=== PATIENT | male | born 1995 | race Two or more races ===

== ENCOUNTER 2024-10-23 09:38 | Emergency (ER) | payer MEDICAID, SELFPAY ==
[2024-10-23 09:47] VITALS: BP 124/83; PULSE 113; RESP 16; TEMP 36.4; O2SAT 98; BMI 25.8
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
[2024-10-23 10:27] VITALS: BP 124/83; PULSE 113; RESP 16; TEMP 36.4; O2SAT 98
--- OUTSIDE RECORDS SUMMARY | 2024-10-23 11:12 | XMS_ITS | Clinical Summary ---
Author Organization [facility] Address [address] [place] [phone] Phone Care Team Providers Care Cook'S Assistant Name Role Phone Unavailable Primary Care Provider Unavailabl e Immunizations Immunization Administration Dates Next Due DTP 02/08/1997,12/19/1996,12/21/1995 ,04/21/1995 DTaP 5 01/09/1999 Hep B, ped/adol 10/03/1998,05/14/1997,02/08/1997 Hib (PRP-T) 12/21/1995,04/21/1995 MMR 01/21/1999,04/21/1995 OPV 01/09/1999,02/08/1997,12/21/1995 ,04/21/1995 Varicella 01/21/1999 Social History Tobacco Use Types Packs/Day Years Used Date Smoking Tobacco: Never Assessed Sex and Gender Information Value Date Recorded Sex Assigned at Not on file Legal Sex Male 4:29 PM EDT Gender Identity Not on file Sexual Orientation Not on file Plan of Treatment Health Maintenance Due Date Last Done Comments Varicella Vaccines (2 of 2 - 2-dose childhood series) 04/15/1999 01/21/1999 DTaP,Tdap,and Td Vaccines (5 - Tdap) 2004 01/09/1999, 02/08/1997, 12/19/1996, Additional history exists COVID-19 Vaccine (2023- season) 2023 Influenza Vaccines (#1) 2024 HIB Vaccines Completed 12/21/1995, 04/21/1995 Hepatitis B Vaccines Completed 10/03/1998, 05/14/1997, 02/08/1997 IPV Vaccines Completed 01/09/1999, 01/18, 12/21/1995, Additional history exists MMR Vaccines Completed 01/21/1999, 04/21/1995 HPV Vaccines Aged Out No longer eligi ble based on patient's age to complete this topic Hepatitis A Vaccines Aged Out No long er eligible based on patient's age to complete this topic Men B Vaccine Aged Out No longer elig ible based on patient's age to complete this topic Meningococcal Vaccine Aged Out No arnold tigre eligible based on patient's age to complete this topic Pneumococcal Vaccine Aged Out No long er eligible based on patient's age to complete this topic
== END 2024-10-23 10:29 | disposition home or self-care (01) ==
LOC: HO.ED 10:24
PROVIDERS: Emergency Provider Emergency Medicine
DX: Z48.02 Encounter for removal of sutures (principal); Z48.01 Encounter for change or removal of surgical wound dressing
CPT/HCPCS: 99282; 99284

== ENCOUNTER 2024-11-22 12:04 | Outpatient (REF) | payer MEDICAID, SELFPAY ==
--- OUTSIDE RECORDS SUMMARY | 2024-11-22 12:48 | XMS_ITS | Clinical Summary ---
Author Organization [facility] Address [address] [place] [phone] Phone Care Team Providers Care It Desktop Support Technician Name Role Phone Unavailable Primary Care Provider [...]
[2024-11-22 13:43] LABS: Hematocrit 37.2 % (42.0-52.0); Hemoglobin 11.8 g/dl (14.0-18.0); Mean Corpuscular HGB Conc 31.7 g/dl (31.0-36.0); Mean Corpuscular Hemoglobin 24.5 pg (27.0-33.0); Mean Corpuscular Volume 77.2 fL (80.0-98.0); NRBC Abs Auto 0.000 X10*3/uL (0.0-0.012); NRBC Pct Auto 0.0 /100WBC (0.0-0.2); Platelet Count 272 X10*3/uL (160-400); Red Blood Count 4.82 X10*6/uL (4.60-5.80); White Blood Count 7.5 X10*3/uL (4.8-10.8)
[2024-11-22 13:58] LABS: Hemoglobin A1C 97.3138 umol/L; Total Hemoglobin (HGBA1C) 3156.8785 umol/L
[2024-11-22 14:19] LABS: Syphilis Screen Nonreactive (Nonreactive)
[2024-11-22 14:22] LABS: Ferritin 429 ng/mL (20-250)
[2024-11-22 14:24] LABS: Alanine Aminotransferase 213 U/L (0-40); Albumin Level 4.4 g/dL (3.5-5.0); Alkaline Phosphatase 100 U/L (39-117); Anion Gap 11 (12-20); Aspartate Amino Transferase 70 U/L (5-37); Blood Urea Nitrogen 12 mg/dL (9-16); Calcium 9.3 mg/dL (8.4-10.2); Carbon Dioxide 32 mmol/L (22-29); Chloride 106 mmol/L (96-108); Cholesterol 106 mg/dL (<200); Estimated Glomerular Filt Rate > 60; HDL Cholesterol 38 mg/dL (>40); Iron 93 mcg/dL (45-160); Magnesium 1.3 mg/dL (1.6-2.6); Percent Iron Saturation 32 % (15-50); Potassium 4.2 mmol/L (3.3-5.1); Sodium 145 mmol/L (135-145); Total Iron Binding Capacity 291 mcg/dL (228-428); Total Protein 6.9 g/dL (6.5-8.0); Triglycerides 52 mg/dL (<150); Unsaturated Iron Binding 198 ug/dL
[2024-11-22 14:29] LABS: Folate 11.6 ng/mL (> or = 4.0); Vitamin B12 521 pg/mL (200-900)
[2024-11-23 08:22] LABS: HBS Num1 482.93 mIU/mL (0-7.99); HBc Num1 0.09 S/CO (0.00-0.79); HBsAGNum1 0.42 S/CO (0.00-0.99); HIV Num 1 0.04 S/CO (0.00-0.99); Hepatitis B Surface Antigen Negative (Negative); ~HepC Num1 0.10 S/CO (0.00-0.79); ~Hepatitis B Surface Antibody REACTIVE (Nonreactive); ~Hepatitis C Antibody Nonreactive (Nonreactive)
== END 2024-11-22 12:05 | disposition home or self-care (01) ==
LOC: HO.HHCL 12:04
PROVIDERS: PCP Student in an Organized Health Care Education/Training Program; Visit Provider Student in an Organized Health Care Education/Training Program
DX: Z00.00 Encounter for general adult medical examination without abnormal findings (principal); E83.42 Hypomagnesemia; Z11.3 Encounter for screening for infections with a predominantly sexual mode of transmission; Z11.59 Encounter for screening for other viral diseases; Z11.4 Encounter for screening for human immunodeficiency virus [HIV]
CPT/HCPCS: 36415; 80053; 80061; 82306; 82607; 82728; 82746; 83036; 83540; 83735; 84443; 85027; 86704; 86706; 86780; 86803; 87340; 87389

== ENCOUNTER 2024-11-29 09:54 | Outpatient (REF) | payer MEDICAID, SELFPAY ==
--- OUTSIDE RECORDS SUMMARY | 2024-11-29 10:31 | XMS_ITS | Clinical Summary ---
Author Organization [facility] Address [address] [place] [phone] Phone Care Team Providers Care Clinical Documentation Manager Name Role Phone Unavailable Primary Care Provider [...] 2004 01/09/1999, 02/08/1997, 12/19/1996, Additional history exists HPV Vaccines (1 - 3-dose SCDM series) 2020 COVID-19 Vaccine ( season) 2023 Influenza Vaccines (#1) 2024 HIB Vaccines Completed 12/21/1995, 04/21/1995 Hepatitis B Vaccines Completed 10/03/1998, 05/14/1997, 02/08/1997 IPV Vaccines Completed 01/09/1999, 01/18, 12/21/1995, Additional history exists MMR Vaccines Completed 01/21/1999, 04/21/1995 Hepatitis A Vaccines Aged Out No long [...]
--- OUTSIDE RECORDS SUMMARY | 2024-11-29 10:31 | XMS_ITS | Encounter Summary ---
Author Organization [facility] Address [address] [place] [address] [address] [address] Care Team Providers Care Accounts Receivable Clerk Name Role Phone Unavailable Primary Care Provider Unavailabl e Encounter Details Date Type Department Care Team (Late Contact Info) Description 11/21/2024 Telephone [facility] [address] [place] [address] [phone] Ben Gonsalez MD [address] [place], [place] [phone] Social History Tobacco Use Types Packs/Day Years Used Date Smoking Tobacco: Never Assessed Sex and Gender Information Value Date Recorded Sex Assigned at Male 11/01/2024 8:50 AM EDT Legal Sex Male 8:49 AM EDT Gender Identity Male 11/01/2024 8:50 AM EDT Sexual Orientation Choose not to disclose 2024 10:08 AM EDT Sexual Orientation Straight 11/23/2024 10 :08 AM EDT documented as of this encounter Miscellaneous Notes * Telephone Encounter - Violeta Rojas - 11/21/2024 1:04 PM EDT Outgoing call to patient to book [facility] appt. No Answer. Left Message. documented in this encounter Plan of Treatment Upcoming Encounters Date Type Department Care Team (Late Contact Info) Description 02/07/2025 9:15 AM EDT Office Visit [facility] [address] [place] [address] [phone] Nu Golden MD [address] [place] [address] documented as of this encounter Visit Diagnoses Not on filedocumented in this encounter
[2024-11-29 12:10] LABS: Alanine Aminotransferase 186 U/L (0-40); Albumin Level 4.2 g/dL (3.5-5.0); Alkaline Phosphatase 100 U/L (39-117); Anion Gap 12 (12-20); Aspartate Amino Transferase 70 U/L (5-37); Blood Urea Nitrogen 13 mg/dL (9-16); Calcium 9.1 mg/dL (8.4-10.2); Carbon Dioxide 28 mmol/L (22-29); Chloride 108 mmol/L (96-108); Estimated Glomerular Filt Rate > 60; Potassium 3.8 mmol/L (3.3-5.1); Sodium 144 mmol/L (135-145); Total Protein 6.5 g/dL (6.5-8.0)
[2024-11-29 13:54] LABS: Magnesium 1.3 mg/dL (1.6-2.6)
== END 2024-11-29 09:55 | disposition home or self-care (01) ==
LOC: HO.HHCL 09:54
PROVIDERS: PCP Student in an Organized Health Care Education/Training Program; Visit Provider Student in an Organized Health Care Education/Training Program
DX: E83.42 Hypomagnesemia (principal)
CPT/HCPCS: 36415; 80053; 83735

== ENCOUNTER 2024-12-04 09:29 | Outpatient (REF) | payer MEDICAID, SELFPAY ==
--- OUTSIDE RECORDS SUMMARY | 2024-12-04 10:01 | XMS_ITS | Clinical Summary ---
Author Organization [facility] Address [address] [place] [phone] Phone Care Team Providers Care Sr. Consultant Name Role Phone Unavailable Primary Care Provider [...]
[2024-12-04 11:37] LABS: Magnesium 1.5 mg/dL (1.6-2.6)
== END 2024-12-04 09:30 | disposition home or self-care (01) ==
LOC: HO.HHCL 09:29
PROVIDERS: PCP Student in an Organized Health Care Education/Training Program; Visit Provider Student in an Organized Health Care Education/Training Program
DX: E83.42 Hypomagnesemia (principal)
CPT/HCPCS: 36415; 83735; 84100

== ENCOUNTER 2025-01-11 09:13 | Outpatient (AMB) | payer MEDICAID, SELFPAY ==
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
[2025-01-11 09:21] VITALS: BMI 25.8
--- OUTSIDE RECORDS SUMMARY | 2025-01-11 10:07 | XMS_ITS | Encounter Summary ---
Author Organization [facility] Address [address] [place] [address] [address] [address] Care Team Providers Care Sports Official Name Role Phone Unavailable Primary Care Provider Unavailabl e Reason for Visit * Reason Comments Med Refill Encounter Details Date Type Department Care Team (Late Contact Info) Description 12/13/2024 Refill [facility] [address] [place] [address] [phone] Nu Golden MD [address] [place] [address] [phone] Social History Tobacco Use Types Packs/Day Years Used Date Smoking Tobacco: Never Passive Smoke Exposure: Never Smokeless Tobacco: Never Sex and Gender Information Value Date Recorded Sex Assigned at Male 11/01/2024 8:50 AM EDT Legal Sex Male 8:49 AM EDT Gender Identity Male 11/01/2024 8:50 AM EDT Sexual Orientation Choose not to disclose 2024 10:08 AM EDT Sexual Orientation Straight 11/23/2024 10 :08 AM EDT documented as of this encounter Plan of Treatment Upcoming Encounters Date Type Department Care Team (Late Contact Info) Description 02/07/2025 9:15 AM EDT Office Visit [facility] [address] [place] [address] [phone] Nu Golden MD [address] [place] [address] [phone] documented as of this encounter Visit Diagnoses Not on filedocumented in this encounter
--- OUTSIDE RECORDS SUMMARY | 2025-01-11 10:07 | XMS_ITS | Clinical Summary ---
Author Organization [employer] [facility] Address [address] [address] [place] [address] Care Team Providers Care Geriatric Nurse Practitioner Name Role Phone Unavailable Primary Care Provider Unavailabl e Allergies No known active allergies Medications ergocalciferol (Vitamin D2) 1.25 MG (86979 UT) capsule Take 1 capsule (1.25 mg) by mouth 1 (one) time per week. 4 capsule 5 5 Active Magnesium Glycinate 100 MG capsule Take 2 capsules (200 mg) by mouth every 12 (twelve) hours. 120 capsule 2 5 Active loperamide (Imodium A-D) 2 MG tablet Take 1-2 tablets (2-4 mg) by mouth if needed in the morning, at noon, in the evening, and at bedtime for diarrhea. 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 Poor oral hygiene 11/22/2024 Transaminitis 11/22/2024 Encounters Date Type Department Care Team Description 12/13/2024 Refill [facility] [address] [place] [phone] Nu Golden MD 12/11/2024 Refill [facility] [address] [place] [address] Nu Golden MD 12/04/2024 Orders Only [address] [address] Nu Golden MD Hypomagnesemia (Primary Dx) 12/04/2024 Results Follow-Up [address] [address] Nu Golden MD Magnesium, Phosphate (As Phosphorus) 11/29/2024 Orders Only [address] [address] Nu Golden MD Transaminitis (Primary Dx); Hypomagnesemia 11/22/2024 11:00 AM EDT Office Visit [facility] [address] [address] Nu Golden MD Health care maintenance (Primary Dx); H/O colectomy; Hypomagnesemia; Autism; Iron deficiency anemia due to chronic blood loss; 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; S/P small bowel resection; S/P right colectomy; Poor oral hygiene; Transaminitis 11/22/2024 Results Follow-Up [facility] [address] [place] [phone] Nu Golden MD CBC, Comprehensive Metabolic Panel, Hemoglobin A1c, Additional followed-up results: 15 11/22/2024 Telephone [facility] [address] [place] [phone] Betty Min RN CRITICAL LAB 11/22/2024 Travel 11/21/[address] [address] Ben Gonsalez MD 11/20/2024 Telephone [facility] [address] [place] [phone] Maribell Talley MD 11/01/[address] [address] Ben Gonsalez MD CH[facility] - New Patient Assistance from Last 3 Months Social History Tobacco Use Types Packs/Day Years Used Date Smoking Tobacco: Never Passive Smoke Exposure: Never Smokeless Tobacco: Never Tobacco Cessation:Counseling Given: Not Answered Sex and Gender Information Value Date Recorded Sex Assigned at Male 11/01/2024 8:50 AM EDT Legal Sex Male 8:49 AM EDT Gender Identity Male 11/01/2024 8:50 AM EDT Sexual Orientation Choose not to disclose 2024 10:08 AM EDT Sexual Orientation Straight 11/23/2024 10 :08 AM EDT Last Filed Vital Signs Vital Sign Reading Time Taken Comments Blood Pressure 139/77 11/22/2024 11:10 AM EDT Pulse 81 11/22/2024 11:10 AM EDT Temperature 36.7 C (98.1 F) 11/22/2024 11:10 AM EDT Respiratory Rate 18 11/22/2024 11:10 AM EDT Oxygen Saturation 98% 11/22/2024 11:10 AM EDT Inhaled Oxygen Concentration - - Weight 72.1 kg (159 lb) 11/22/2024 11:10 AM EDT Height - - Body Mass Index - - Plan of Treatment Upcoming Encounters Date Type Department Care Team (Late st Contact Info) Description 02/07/2025 9:15 AM EDT Office Visit [facility] [address] [place] [address] [phone] Nu Golden MD [address] [place] [address] Health Maintenance Due Date Last Done Comments Depression Screening 1993 SDOH Screening 1993 Disability Screening 1993 DTaP/Tdap/Td Vaccines (5 - Tdap) 2004 01/09/1999, 02/08/1997, 12/19/1996, Additional history exists Alcohol/Substance Use Screening 2005 Family Planning (PISQ) 2008 HPV Vaccines (1 - Male 3-dose series) 2008 COVID-19 Vaccine (1 - season) 2024 Influenza Vaccine (#1) 2024 Tobacco Screening 11/22/2025 11/22/2024 Zoster Vaccines (1 of 2) 12/25/2043 RSV Patients and Patients Aged 60 years or older (1 - 1-dose 75+ series) 2068 HIB Vaccines Completed 12/21/1995, 04/21/1995 Hepatitis B Vaccines Completed 10/03/1998, 05/14/1997, 02/08/1997 IPV Vaccines Completed 01/09/1999, 01/18, 12/21/1995, Additional history exists HIV Screening Completed 11/22/2024 Hepatitis C Screening Completed 11/22/2024 Hepatitis A Vaccines Aged Out No long er eligible based on patient's age to complete this topic Meningococcal B Vaccine Aged Out No l onger eligible based on patient's age to complete this topic Meningococcal Vaccine Aged Out No arnold tigre eligible based on patient's age to complete this topic Pneumococcal Vaccine: Pediatrics (0 to 5 Years) and At-Risk Patients (6 to 49) Years Aged Out No longer eligible based on patient's age to complete this topic RSV under 20 months Aged Out No longe r eligible based on patient's age to complete this topic Rotavirus Vaccines Aged Out No longer eligible based on patient's age to complete this topic Procedures Procedure Name Priority Date/Time Associated Diagnosis Comments PHOSPHATE ( PHOSPHORUS) Routine 12/04/2024 9:33 AM EDT Hypomagnesemia MAGNESIUM Routine 12/04/2024 9:33 AM EDT Hypomagnesemia MAGNESIUM Routine 11/29/2024 9:58 AM EDT Hypomagnesemia COMPREHENSIVE METABOLIC PANEL Routine 11/29/2024 9:58 AM EDT Hypomagnesemia FERRITIN Routine 11/22/2024 12:24 PM EDT Health care maintenance IRON AND TOTAL IRON BINDING CAPACITY Routine 11/22/2024 12:24 PM EDT Health care maintenance MAGNESIUM Routine 11/22/2024 12:24 PM EDT Health care maintenance VITAMIN D,25-OH,TOTAL,IA Routine 11/22/2024 12:24 PM EDT Health care maintenance VITAMIN B12/FOLATE, SERUM PANEL Routine 11/22/2024 12:24 PM EDT Health care maintenance TSH W/REFLEX TO FT4 Routine 11/22/2024 1 2:24 PM EDT Health care maintenance SYPHILIS SCREEN Routine 11/22/2024 12:24 PM EDT Health care maintenance LIPID PANEL, STANDARD Routine 11/22/2024 12:24 PM EDT Health care maintenance HIV 1/2 ANTIGEN/ANTIBODY, FOURTH GENERATION W/RFL Routine 11/22/2024 12:24 PM EDT Health care maintenance HEPATITIS C AB W/REFL TO HCV RNA, QN, PCR Routine 11/22/2024 12:24 PM EDT Health care maintenance HEPATITIS B SURFACE ANTIGEN, EIA Routine 11/22/2024 12:24 PM EDT Health care maintenance HEPATITIS B SURFACE ANTIBODY, QUALITATIVE Routine 11/22/2024 12:24 PM EDT Health care maintenance HEPATITIS B CORE AB TOTAL Routine 11/22/2024 12:24 PM EDT Health care maintenance HEMOGLOBIN A1C Routine 11/22/2024 12:24 PM EDT Health care maintenance COMPREHENSIVE METABOLIC PANEL Routine 11/22/2024 12:24 PM EDT Health care maintenance CBC Routine 11/22/2024 12:24 PM EDT Health care maintenance from Last 3 Months Results * Phosphate (As Phosphorus) (12/04/2024 9:33 AM EDT) Phosphorus 3.7 2.7 - 4.5 mg/dL [facility] Blood Venous blood specimen / Unknown 12/04/2024 9:33 AM EDT 12/04/2024 11:10 AM EDT Nu Eckert MD LAB BLOOD ORDERAB LES Final Result Performing Organization Address [facility] Co de Phone Number [facility] [address] [place] [phone] [phone] * (ABNORMAL) Magnesium (12/04/2024 9:33 AM EDT) Only the most recent of3 resultswithin the time period is included. Magnesium 1.5(L) 1.6 - 2.6 mg/dL [facility] Blood Venous blood specimen / Unknown 12/04/2024 9:33 AM EDT 12/04/2024 11:10 AM EDT Nu Eckert MD LAB BLOOD ORDERAB LES Final Result Performing Organization Address [facility] de Phone Number [facility] [address] [place] [phone] * (ABNORMAL) Comprehensive Metabolic Panel (11/29/2024 9:58 AM EDT) Only the most recent of2 resultswithin the time period is included. Sodium 144 135 - 145 mmol/L [facility] Potassium 3.8 3.3 - 5.1 mmol/L [facility] Chloride 108 96 - 108 mmol/L [facility] Carbon Dioxide 28 22 - 29 mmol/L [facility] Anion Gap 12 12 - 20 [facility] Urea Nitrogen (BUN) 13 9 - 16 mg/dL [facility] Creatinine, Serum 0.69 0.5 - 1.4 mg/dL [facility] Estimated Glomerular Filt Rate >60 [facility] Comment:Chronic Kidney Disea se: Estimated GFR < 60 mL/min/1.69s0Smgkhe Kidney Disease: Estimated GFR < 15 mL/min/1.73m2 Glucose 110 60 - 115 mg/dL [facility] Calcium 9.1 8.4 - 10.2 mg/dL [facility] Bilirubin, Total 0.8 0.0 - 1.0 mg/dL [facility] Aspartate Amino Transferase 70(H) 5 - 37 U/L [facility] Alanine Aminotransferase 186(H) 0 - 40 U/L [facility] Total Protein 6.5 6.5 - 8.0 g/dL [facility] Albumin Level 4.2 3.5 - 5.0 g/dL [facility] Alkaline Phosphatase 100 39 - 117 U/L [facility] Blood Venous blood specimen / Unknown 11/29/2024 9:58 AM EDT 11/29/2024 11:15 AM EDT Nu Eckert MD LAB BLOOD ORDERAB LES Final Result Performing Organization Address City/[facility]/ZIP Co de Phone Number [facility] [address] [place] [phone] * Syphilis Screen (11/22/2024 12:24 PM EDT) Syphilis Screen Nonreactive Nonreactive [facility] Blood 11/22/2024 12:2 4 PM EDT 11/22/2024 1:36 PM EDT us Nu Eckert MD LAB BLOOD ORDERAB LES Final Result Performing Organization Address City/[facility]/ZIP Co de Phone Number [facility] [address] [place] [phone] * (ABNORMAL) Vitamin D, 25-Hydroxy, Total, Immunoassay (11/22/2024 12:24 PM EDT) Vitamin D 25-OH Total 12.2(L) >30 ng/mL [facility] Comment: Health Based Reference Values*< 20 ng/mL Xqueslnoa02-91 ng/mL Insufficient> 30 ng/mL Sufficient*Lewis KUMAR. N Engl J Med. 2007;357:266-280There is no well-established upper level of normal vitamin Dlevels. Some laboratories use 50 ng/mL as an upper limit ofnormal. However, toxicity is patient-dependent and may occurat any level. Careful correlation with the patient'spresentation is necessary and, if there is concern forvitamin D toxicity, treatment should be consideredirrespective of the serum level.Care must be taken in interpreting Vitamin D results fromdifferent laboratories and methodologies. Published datademonstrated that results from patients undergoinghemodialysis may show a negative bias when tested withvarious automated 25-OH vitamin D assays when compared toLC-MS/MS.When testing samples from patients whose predominant form ofVitamin D is Vitamin D2, such as patients receiving VitaminD2 supplementation, results that are subtherapeutic shouldbe confirmed with another method such as LC-MS/MS. Blood Venous blood specimen / Unknown 11/22/2024 12:24 PM EDT 11/22/2024 1:36 PM EDT us Nu Eckert MD LAB BLOOD ORDERAB LES Final Result Performing Organization Address [facility] Co de Phone Number [facility] [address] [place] [phone] * Vitamin B12 (Cobalamin) and Folate Panel, Serum (11/22/2024 12:24 PM EDT) Vitamin B12 521 200 - 900 pg/mL [facility] Comment:NORMAL 200-900 PG/ML INDETERMINATE 160-199 PG/ML DEFICIENT < 160 PG/ML Folate 11.6 > or = 4.0 ng/mL [facility] Comment:Reference Values:> o r = 4.0 ng/mL< 4.0 ng/mL suggests folate deficiency Methotrexate, aminopterin and folinic acid(leucovorin) are chemotherapeutic agents whose molecularstructures are similar to folate; therefore, the Architectfolate assay cannot be used for patients using these drugs. Blood 11/22/2024 12:2 4 PM EDT 11/22/2024 1:36 PM EDT Nu Eckert MD LAB BLOOD ORDERAB LES Final Result Performing Organization Address [facility] Co de Phone Number [facility] [address] [place] [phone] * TSH with Reflex to Free T4 (11/22/2024 12:24 PM EDT) TSH reflex Free T4 0.71 0.32 - 4.0 uIU/mL [facility] Blood 11/22/2024 12:2 4 PM EDT 11/22/2024 1:36 PM EDT us Nu Eckert MD LAB BLOOD ORDERAB LES Final Result Performing Organization Address [facility]/ZIP Co de Phone Number [facility] [address] [place] [phone] * Hepatitis C Antibody with Reflex to HCV, RNA, Quantitative, Real-Time PCR (11/22/2024 12:24 PM EDT) Hepatitis C Antibody Nonreactive Nonreactive [facility] Comment:Antibodies to HCV no t detected; does not exclude early acuteHCV infection. Blood Venous blood specimen / Unknown 11/22/2024 12:24 PM EDT 11/22/2024 1:36 PM EDT us Nu Eckert MD LAB BLOOD ORDERAB LES Final Result Performing Organization Address City/[facility]/ZIP Co de Phone Number [facility] [address] [place] [phone] * Iron And Total Iron Binding Capacity (11/22/2024 12:24 PM EDT) Iron 93 45 - 160 mcg/dL [facility] Total Iron Binding Capacity 291 228 - 428 mcg/dL [facility] Percent Iron Saturation 32 15 - 50 % [facility] Unsaturated Iron Binding 198 ug/dL [facility] Blood Venous blood specimen / Unknown 11/22/2024 12:24 PM EDT 11/22/2024 1:36 PM EDT us Nu Eckert MD LAB BLOOD ORDERAB LES Final Result Performing Organization Address City/[facility]/ZIP Co de Phone Number [facility] [address] [place] [phone] * Hepatitis B surface antigen, EIA (11/22/2024 12:24 PM EDT) Hepatitis B Surface Ag Negative Negative [facility] Blood Venous blood specimen / Unknown 11/22/2024 12:24 PM EDT 11/22/2024 1:36 PM EDT Nu Eckert MD LAB BLOOD ORDERAB LES Final Result Performing Organization Address [facility] Co de Phone Number [facility] [address] [place] [phone] * Hepatitis B Core Antibody, Total (11/22/2024 12:24 PM EDT) Pathologist [facility] Hepatitis B Core Antibody Nonreactive Nonreactive [facility] Blood Venous blood specimen / Unknown 11/22/2024 12:24 PM EDT 11/22/2024 1:36 PM EDT us Nu Eckert MD LAB BLOOD ORDERAB LES Final Result Performing Organization Address City/[facility]/ZIP Co de Phone Number [facility] [address] [place] [phone] * HIV-1/2 Antigen and Antibodies, Fourth Generation, with Reflexes (11/22/2024 12:24 PM EDT) HIV AB/AG Nonreactive Nonreactive [facility] Comment:HIV-1 p24 Ag and/or HIV-1/HIV-2 Ab not detected.A test result that is nonreactive does not exclude thepossibility of exposure to or infection with HIV-1 and/orHIV-2. Nonreactive results in this assay for individualswith prior exposure to HIV-1 and/or HIV-2 may be due toantigen and antibody levels that are below the limit ofdetection of this assay.The Iron.io HIV Ag/Ab Combo assay result andsupplemental assay results should be interpreted inconjunction with the patient's clinical presentation,history and other laboratory results. If the results areinconsistent with clinical evidence, additional testing issuggested to confirm the result. Blood Venous blood specimen / Unknown 11/22/2024 12:24 PM EDT 11/22/2024 1:36 PM EDT us Nu Eckert MD LAB BLOOD ORDERAB LES Final Result Performing Organization Address [facility]/ZIP Co de Phone Number [facility] [address] [place] [phone] * Hepatitis B Surface Antibody, Qualitative (11/22/2024 12:24 PM EDT) Pathologist [facility] ~Hepatitis B Surface Antibody REACTIVE Nonreactive [facility] Comment:REACTIVE: > 11.99 mI U/mL Blood Venous blood specimen / Unknown 11/22/2024 12:24 PM EDT 11/22/2024 1:36 PM EDT us Nu Eckert MD LAB BLOOD ORDERAB LES Final Result Performing Organization Address [facility]/ZIP Co de Phone Number [facility] [address] [place] [phone] * (ABNORMAL) CBC (11/22/2024 12:24 PM EDT) Pathologist [facility] White Blood Count 7.5 4.8 - 10.8 X10*3/uL [facility] Red Blood Count 4.82 4.60 - 5.80 X10*6/uL [facility] Hemoglobin 11.8(L) 14.0 - 18.0 g/dl [facility] Hematocrit 37.2(L) 42.0 - 52.0 % [facility] Mean Corpuscular Volume 77.2(L) 80.0 - 98.0 fL [facility] Mean Corpuscular Hemoglobin 24.5(L) 27.0 - 33.0 pg [facility] Mean Corpuscular HGB Conc 31.7 31.0 - 36.0 g/dl [facility] Red Cell Distribution Width 12.8 11.0 - 16.0 % [facility] Platelet Count 272 160 - 400 X10*3/uL [facility] Mean Platelet Volume 11.3 9.4 - 12.4 fL [facility] NRBC Pct Auto 0.0 0.0 - 0.2 /100WBC [facility] NRBC Abs Auto 0.000 0.0 - 0.012 X10*3/uL [facility] Blood Venous blood specimen / Unknown 11/22/2024 12:24 PM EDT 11/22/2024 1:36 PM EDT Nu Eckert MD LAB BLOOD ORDERAB LES Final Result [facility] [address] [place] [phone] * Hemoglobin A1c (11/22/2024 12:24 PM EDT) Hemoglobin A1c 5.0 <6.0 % [facility] Comment:Hemoglobin A1C Refer ence Range Adults: 4.8 - 6.0 % Non diabetic: < 6.0 % Goal: < 7.0 %Additional Action Suggested: > 8.0 %Note: Hemoglobin A1c results are invalid for patients with abnormal amounts of HbF. Blood transfusions may impact the HbA1c concentration in the patient sample. Estimated Average Glucose 97 mg/dL [facility] Comment:eAG = Estimated ave rage glucose which is %A1C expressed asaverage glucose, using the formula of the [id number] Glucose study (ADAG), Diabetes Care, Vol.31,#8,Nov. 2007 Blood Venous blood specimen / Unknown 11/22/2024 12:24 PM EDT 11/22/2024 1:36 PM EDT us Nu Eckert MD LAB BLOOD ORDERAB LES Final Result Performing Organization Address City/[facility]/ZIP Co de Phone Number [facility] [address] [place] [phone] * (ABNORMAL) Ferritin (11/22/2024 12:24 PM EDT) Ferritin 429(H) 20 - 250 ng/mL [facility] Blood Venous blood specimen / Unknown 11/22/2024 12:24 PM EDT 11/22/2024 1:36 PM EDT us Nu Eckert MD LAB BLOOD ORDERAB LES Final Result Performing Organization Address City/[facility] Co de Phone Number [facility] [address] [place] [phone] * (ABNORMAL) Lipid Panel, Standard (11/22/2024 12:24 PM EDT) Triglycerides 52 <150 mg/dL [facility] Comment:Desirable Triglyceri de: less than 150 mg/dLBorderline High Triglyceride 150-199 mg/dLHigh Triglyceride: 200-499 mg/dLVery High Triglyceride: greater than or equal to 5OO mg/dL Cholesterol 106 <200 mg/dL [facility] Comment:Desirable Cholestero l: less than 200 mg/dLBorderline High Cholesterol: 200-239 mg/dLHigh Cholesterol: greater than 239 mg/dL LDL Cholesterol Calculated 58 <100 mg/dL [facility] Comment:Desirable LDL: less than 100 mg/dLNear Optimal/Above Optimal LDL: 110- 129 mg/dLBorderline High LDL: 130-159 mg/dLHigh LDL: 160-189 mg/dLVery High LDL: greater than or equal to 190 mg/dL HDL Cholesterol 38(L) >40 mg/dL [facility] Comment:Desirable HDL: great er than 40 mg/dL Note: This HDL assay may give artificially low results in patients with liver disease. Blood Venous blood specimen / Unknown 11/22/2024 12:24 PM EDT 11/22/2024 1:36 PM EDT Nu Eckert MD LAB BLOOD ORDERAB LES Final Result [facility] [address] [place] [phone] from Last 3 Months Insurance [facility] C3
--- OUTSIDE RECORDS SUMMARY | 2025-01-11 10:07 | XMS_ITS | Encounter Summary ---
Author Organization [employer] [facility] Address [address] [place] [address] [address] [place] [address] Care Team Providers Care Community Health Agent Name Role Phone Unavailable Primary Care Provider Unavailabl e Reason for Visit * Reason Comments Med Refill Encounter Details Date Type Department Care Team (Late Contact Info) Description 12/11/2024 Refill [facility] [address] [place] [address] [phone] Nu Golden MD [address] [place] [address] [phone] Social History Tobacco Use Types Packs/Day Years [...] Description 02/07/2025 9:15 AM EDT Office Visit [facility] [address] [place] [address] [phone] Nu Golden MD [address] [place] [address] [phone] documented as of this encounter Visit Diagnoses Not on filedocumented in this encounter
--- OUTSIDE RECORDS SUMMARY | 2025-01-11 10:07 | XMS_ITS | Encounter Summary ---
Author Organization [employer] Address [address] [place] [address] 7[address] [place] [address] Care Team Providers Care Quality Control Supervisor Name Role Phone Unavailable Primary Care Provider Unavailabl e Reason for Visit * Reason Onset Date Comments Results 12/04/2024 Lab Orders 12/04/2024 Encounter Details Date Type Department Care Team ([facility] Contact Info) Description 12/04/2024 Results Follow-Up [facility] [address] [place], [place] [phone] Nu Golden MD [address] [place], [place] [phone] Magnesium, Phosphate (As Phosphorus) Social History Tobacco Use Types Packs/Day Years [...] encounter Miscellaneous Notes * Telephone Encounter - Maria De Jesus Rodrigues RN - 12/05/2024 10:57 AM EDT Telephone call placed to pt's father x2 regarding below results and POC. Informed mag improved but still low. Dad confirms pt taking taking magnesium glycinate 100mg 2 capsules BID as well as loperamide 2mg daily and that he discontinued the pantoprazole. Dad reports that pt's stools have improved.He reports that pt is no longer stooling immediately after eating, dad has been timing it and it isnow ~14 minutes. Dad also reports pt has had a few formed stools instead of diarrhea. Advised to repeat labs in 14 days. Not fasting, can come to the lab, order already placed. Dad verbalized understanding and denied having any further questions or concerns at this time. * Telephone Encounter - Maria De Jesus Rodrigues RN - 12/04/2024 4:29 PM EDT Telephone call placed to pt's father regarding below results and POC. No answer, left v/m. Will retask * Telephone Encounter - Maria De Jesus Rodrigues RN - 12/04/2024 4:27 PM EDT ----- Message from Nu Eckert MD sent at 12/04/2024 3:45 PM EDT ----- Please inform pt /father his Mag is 1.5 from 1.3 -- improved but still low Please can you confirm pt is taking as prescribed last time -Magnesium Glycinate 200 mg PO BID -check if already stopped PPI -advised to continue loperamide 1-2 tab Q 8 h -repeat Mag in 14 days -ordered today -will call pt w result Thanks ----- Message ----- From: Interface, Lab Results In Sent: 12/04/2024 11:37 AM EDT To: Nu Eckert MD * Result Encounter Note - Nu Eckert MD - 12/04/2024 3:45 PM EDT Please inform pt /father his Mag is 1.5 from 1.3 -- improved but still low Please can you confirm pt is taking as prescribed last time -Magnesium Glycinate 200 mg PO BID -check if already stopped PPI -advised to continue loperamide 1-2 tab Q 8 h -repeat Mag in 14 days -ordered today -will call pt w result Thanks documented in this encounter Plan of Treatment Upcoming Encounters Date Type Department Care Team (Late st Contact Info) Description 02/07/2025 9:15 AM EDT Office Visit [facility] [address] [place] [phone] Nu Golden MD [address] [place] [address] documented as of this encounter Visit Diagnoses Not on filedocumented in this encounter
--- OUTSIDE RECORDS SUMMARY | 2025-01-11 10:07 | XMS_ITS | Clinical Summary ---
Author Organization [facility] Address [address] [place] [phone] Phone Care Team Providers Care Real Estate Recruiter Name Role Phone Unavailable Primary Care Provider [...] Vaccines (1 - 3-dose SCDM series) 2020 Influenza Vaccines (#1) 2024 COVID-19 Vaccine ( season) 2024 HIB Vaccines Completed 12/21/1995, 04/21/1995 Hepatitis [...]
--- OUTSIDE RECORDS SUMMARY | 2025-01-11 10:07 | XMS_ITS | Encounter Summary ---
Author Organization [employer] Address [address] [facility] 7t [place] [address] Care Team Providers Care Certified Mortician Name Role Phone Unavailable Primary Care Provider Unavailabl e Encounter Details Date Type Department Care Team (Latest Contact Info) Description 11/22/2024 Results Follow-Up [facility] [address] [place], [place] [phone] Nu Golden MD [address] [place], [place] [phone] CBC, Comprehensive Metabolic Panel, Hemoglobin A1c, Additional followed-up results: 15 Social History Tobacco Use Types Packs/Day Years [...] as of this encounter Miscellaneous Notes * Result Encounter Note - Nu Eckert MD - 11/29/2024 4:44 PM EDT As in telephone encounter * Result Encounter Note - Nu Eckert MD - 11/22/2024 4:04 PM EDT Spoke w father ,plan as in my note from today documented in this encounter Plan of Treatment Upcoming Encounters Date Type Department Care Team (Late st Contact Info) Description 02/07/2025 9:15 AM EDT Office Visit [facility] [address] [place] [address] Nu Golden MD [address] [place] [address] documented as of this encounter Visit Diagnoses Not on filedocumented in this encounter
== END 2025-01-11 09:33 | disposition home or self-care (01) ==
LOC: HO.HGS 09:13
PROVIDERS: PCP Student in an Organized Health Care Education/Training Program; Visit Provider Surgery
DX: Z98.890 Other specified postprocedural states (principal)
CPT/HCPCS: 99203

== ENCOUNTER → 2025-01-11 09:13 | Outpatient (BNVA) | payer MEDICAID, SELFPAY | PROVIDERS: PCP Student in an Organized Health Care Education/Training Program; Visit Provider Surgery | DX: R19.7 Diarrhea, unspecified (principal); Z98.890 Other specified postprocedural states | CPT/HCPCS: 99202 ==

== ENCOUNTER 2025-01-15 08:10 | Outpatient (REF) | payer MEDICAID, SELFPAY ==
--- OUTSIDE RECORDS SUMMARY | 2025-01-15 08:17 | XMS_ITS | Clinical Summary ---
Author Organization [facility] Address [address] [place] [address] Phone Care Team Providers Care Hand Buffer Name Role Phone Unavailable Primary Care Provider [...]
--- OUTSIDE RECORDS SUMMARY | 2025-01-15 08:18 | XMS_ITS | Encounter Summary ---
Author Organization [employer] Address [address] [facility] 7t [place] [address] Care Team Providers Care District Plant Superintendent Name Role Phone Unavailable Primary Care Provider Unavailabl e Encounter Details Date Type Department Care Team (Latest Contact Info) Description 11/22/2024 Results Follow-Up [facility] [address] [place], [place] [phone] Nu Golden MD [address] [place], [place] [phone] CBC, Comprehensive Metabolic Panel, Hemoglobin A1c, Additional [...] Description 02/07/2025 9:15 AM EDT Office Visit [facility] [address] [place] [address] Nu Golden MD [address] [place] [address] documented as of this encounter Visit Diagnoses Not on filedocumented in this encounter
--- OUTSIDE RECORDS SUMMARY | 2025-01-15 08:18 | XMS_ITS | Encounter Summary ---
Author Organization [facility] Address [address] [place] [address] 7[address] [place] [address] Care Team Providers Care Developer Prover Mechanical Name Role Phone Unavailable Primary Care Provider Unavailabl e Reason for Referral * Consultation (Routine) - Authorized Specialty Diagnoses / Procedures Referred By Conteliana t Referred To Contact Gastroenterology Diagnoses H/O colectomy Hypomagnesemia Diarrhea, unspecified type Nu Golden MD [address] [place] [address] Phone: tel: fax: [facility] Referral ID Status Reason Start Date Expiration Date Visits Requested Visits Authorized [id number] Authorized Specialty Services Required 01/12/2025 01/12/2026 6 6 Encounter Details Date Type Department Care Team ([facility] st Contact Info) Description 01/11/2025 Orders Only [facility] [address] [place] [address] [phone] Nu Golden MD [address] [place], [place] [phone] H/O colectomy (Primary Dx); Hypomagnesemia; Diarrhea, unspecified type Social History Tobacco Use Types Packs/Day Years [...] Description 02/07/2025 9:15 AM EDT Office Visit [facility] [address] [place] [address] Nu Golden MD [address] [place] [address] Scheduled Referrals Name Type Priority Associated Diagnoses Order Schedule Referral to Gastroenterology Outpatient Referral Routine H/O colectomy Hypomagnesemia Diarrhea, unspecified type Expected: 01/11/2025 (Approximate), Expires: 01/11/2026 documented as of this encounter Visit Diagnoses Diagnosis H/O colectomy- Primary Hypomagnesemia Disorders of magnesium metabolism Diarrhea, unspecified type documented in this encounter
--- OUTSIDE RECORDS SUMMARY | 2025-01-15 08:18 | XMS_ITS | Encounter Summary ---
Author Organization [employer] [facility] Address [address] [place] [address] 7t [place] [address] Care Team Providers Care Production Drilling Machine Operator Name Role Phone Unavailable Primary Care Provider Unavailabl e Reason for Visit * Reason Comments Med Refill Encounter Details Date Type Department Care Team (Late Contact Info) Description 12/11/[address] [facility] [address] [place] [address] [phone] Nu Golden MD [address] [place] [address] [phone] Social History Tobacco Use Types Packs/Day Years [...] Description 02/07/2025 9:15 AM EDT Office Visit [facility] [address] [place] [address] [phone] Nu Golden MD [address] [place] [address] [phone] documented as of this encounter Visit Diagnoses Not on filedocumented in this encounter
--- OUTSIDE RECORDS SUMMARY | 2025-01-15 08:18 | XMS_ITS | Clinical Summary ---
Author Organization [facility] Address [address] [place] [address] 7t [place] [address] Care Team Providers Care Electric Motor Assembler And Tester Name Role Phone Unavailable Primary Care Provider Unavailabl e Allergies No known active allergies Medications ergocalciferol (Vitamin D2) 1.25 MG (62721 UT) capsule Take 1 capsule (1.25 mg) [...] Encounters Date Type Department Care Team Description 01/14/2025 Refill [facility] [address] [place] [address] Nu Golden MD 01/12/2025 Telephone [facility] [address] [place] [address] Maria De Jesus Rodrigues RN Referral; Lab Orders 01/11/2025 Orders Only [address] [address] Nu Golden MD H/O colectomy (Primary Dx); Hypomagnesemia; Diarrhea, unspecified type 12/13/2024 Refill [facility] [address] [address] Nu Golden MD 12/11/2024 Refill [facility] [address] [address] Nu Golden MD 12/04/2024 Orders Only [address] [address] Nu Golden MD Hypomagnesemia (Primary Dx) 12/04/2024 Results Follow-Up [address] [address] Nu Golden MD Magnesium, Phosphate (As Phosphorus) 11/29/2024 Orders Only [address] [address] Nu Golden MD Transaminitis (Primary Dx); Hypomagnesemia 11/22/2024 11:00 AM EDT [facility] [address] [address] Nu Golden MD Health care maintenance (Primary Dx); H/O colectomy; Hypomagnesemia; Autism; Iron deficiency anemia due to chronic blood loss; 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; S/P small bowel resection; S/P right colectomy; Poor oral hygiene; Transaminitis 11/22/2024 Results Follow-Up [facility] [address] [address] Nu Golden MD CBC, Comprehensive Metabolic Panel, Hemoglobin A1c, Additional followed-up results: 15 11/22/2024 Telephone [facility] [address] [place] [phone] Betty Min RN CRITICAL LAB 11/22/2024 Travel 11/21/2024 Telephone [facility] [address] [place] [phone] Ben Gonsalez MD 11/20/2024 Telephone [facility] INS ENROLLMENT [address] [place] [phone] Maribell Talley MD 11/01/2024 Telephone [facility] [address] [place] [phone] Ben Gonsalez MD CHW - New Patient [...] Description 02/07/2025 9:15 AM EDT Office Visit [facility] [address] [place] [phone] Nu Golden MD [address] [place] [phone] Health Maintenance Due Date Last Done Comments [...] Phosphate (As Phosphorus) (12/04/2024 9:33 AM EDT) Pathologist [facility] Phosphorus 3.7 2.7 - 4.5 mg/dL [facility] Blood Venous blood specimen / Unknown 12/04/2024 9:33 AM EDT 12/04/2024 11:10 AM EDT us Nu Eckert MD LAB BLOOD ORDERAB LES Final Result Performing Organization Address City/[facility]/ZIP Co de Phone Number [facility] [address] [place] [phone] * (ABNORMAL) Magnesium (12/04/2024 9:33 AM EDT) Only the most recent of3 resultswithin the time period is included. [facility] Magnesium 1.5(L) 1.6 - 2.6 mg/dL [facility] Blood Venous blood specimen / Unknown 12/04/2024 9:33 AM EDT 12/04/2024 11:10 AM EDT us Nu Eckert MD LAB BLOOD ORDERAB LES Final Result Performing Organization Address City/[facility]/ZIP Co de Phone Number [facility] [address] [place] [phone] * (ABNORMAL) Comprehensive Metabolic Panel (11/29/2024 9:58 AM EDT) Only the most recent of2 resultswithin the time period is included. [facility] Sodium 144 135 - 145 mmol/L [facility] Potassium 3.8 3.3 - 5.1 mmol/L [facility] Chloride 108 96 - 108 mmol/L [facility] Carbon Dioxide 28 22 - 29 mmol/L [facility] Anion Gap 12 12 - 20 [facility] Urea Nitrogen (BUN) 13 9 - 16 mg/dL [facility] Creatinine, Serum 0.69 0.5 - 1.4 mg/dL [facility] Estimated Glomerular Filt Rate >60 [facility] Comment:Chronic Kidney Disea se: Estimated GFR < 60 mL/min/1.25s0Azkveo Kidney Disease: Estimated GFR < 15 mL/min/1.73m2 Glucose 110 60 - 115 mg/dL [facility] Calcium 9.1 8.4 - 10.2 mg/dL [facility] Bilirubin, Total 0.8 0.0 - 1.0 mg/dL [facility] Aspartate Amino Transferase 70(H) 5 - 37 U/L [facility] Alanine Aminotransferase 186(H) 0 - 40 U/L [facility] Total Protein 6.5 6.5 - 8.0 g/dL [facility] Albumin Level 4.2 3.5 - 5.0 g/dL [facility] Alkaline Phosphatase 100 39 - 117 U/L [facility] Blood Venous blood specimen / Unknown 11/29/2024 9:58 AM EDT 11/29/2024 11:15 AM EDT us Nu Eckert MD LAB BLOOD ORDERAB LES Final Result Performing Organization Address [facility]/ZIP Co de Phone Number [facility] [address] [place] [phone] * Syphilis Screen (11/22/2024 12:24 PM EDT) Syphilis Screen Nonreactive Nonreactive [facility] Blood 11/22/2024 12:2 4 PM EDT 11/22/2024 1:36 PM EDT us Nu Eckert MD LAB BLOOD ORDERAB LES Final Result Performing Organization Address [facility] Co de Phone Number [facility] [address] [place] [phone] * (ABNORMAL) Vitamin D, 25-Hydroxy, Total, Immunoassay (11/22/2024 12:24 PM EDT) Vitamin D 25-OH Total 12.2(L) >30 ng/mL [facility] Comment: Health Based Reference Values*< 20 ng/mL Dzbkzpmhd43-76 ng/mL Insufficient> 30 ng/mL Sufficient*Lewis KUMAR. N [...] MD LAB BLOOD ORDERAB LES Final Result [facility] [address] [place] [phone] * Vitamin B12 (Cobalamin) and Folate Panel, Serum (11/22/2024 12:24 PM EDT) Vitamin B12 521 200 - 900 pg/mL [facility] Comment:NORMAL 200-900 PG/ML INDETERMINATE 160-199 PG/ML DEFICIENT < 160 PG/ML Folate 11.6 > or = 4.0 ng/mL [facility] Comment:Reference Values:> o r = 4.0 ng/mL< 4.0 ng/mL suggests folate deficiency Methotrexate, aminopterin and folinic acid(leucovorin) are chemotherapeutic agents whose molecularstructures are similar to folate; therefore, the Architectfolate assay cannot be used for patients using these drugs. Blood 11/22/2024 12:2 4 PM EDT 11/22/2024 1:36 PM EDT Nu Eckert MD LAB BLOOD ORDERAB LES Final Result Performing Organization Address [facility] Co de Phone Number [facility] [address] [place] [phone] * TSH with Reflex to Free T4 (11/22/2024 12:24 PM EDT) TSH reflex Free T4 0.71 0.32 - 4.0 uIU/mL [facility] Blood 11/22/2024 12:2 4 PM EDT 11/22/2024 1:36 PM EDT Nu Eckert MD LAB BLOOD ORDERAB LES Final Result Performing Organization Address [facility] Phone Number [facility] [address] [place] [phone] * Hepatitis C Antibody with Reflex to HCV, RNA, Quantitative, Real-Time PCR (11/22/2024 12:24 PM EDT) Hepatitis C Antibody Nonreactive Nonreactive [facility] Comment:Antibodies to HCV no t detected; does not exclude early acuteHCV infection. Blood Venous blood specimen / Unknown 11/22/2024 12:24 PM EDT 11/22/2024 1:36 PM EDT Nu Eckert MD LAB BLOOD ORDERAB LES Final Result Performing Organization Address [facility] Co de Phone Number [facility] [address] [place] [phone] * Iron And Total Iron Binding Capacity (11/22/2024 12:24 PM EDT) Iron 93 45 - 160 mcg/dL [facility] Total Iron Binding Capacity 291 228 - 428 mcg/dL [facility] Percent Iron Saturation 32 15 - 50 % [facility] Unsaturated Iron Binding 198 ug/dL [facility] Blood Venous blood specimen / Unknown 11/22/2024 12:24 PM EDT 11/22/2024 1:36 PM EDT us Nu Eckert MD LAB BLOOD ORDERAB LES Final Result Performing Organization Address City/[facility]/ZIP Co de Phone Number [facility] [address] [place] [phone] * Hepatitis B surface antigen, EIA (11/22/2024 12:24 PM EDT) Hepatitis B Surface Ag Negative Negative [facility] Blood Venous blood specimen / Unknown 11/22/2024 12:24 PM EDT 11/22/2024 1:36 PM EDT us Nu Eckert MD LAB BLOOD ORDERAB LES Final Result Performing Organization Address City/[facility]/ZIP Co de Phone Number [facility] [address] [place] [phone] * Hepatitis B Core Antibody, Total (11/22/2024 12:24 PM EDT) Hepatitis B Core Antibody Nonreactive Nonreactive [facility] Blood Venous blood specimen / Unknown 11/22/2024 12:24 PM EDT 11/22/2024 1:36 PM EDT us Nu Eckert MD LAB BLOOD ORDERAB LES Final Result Performing Organization Address City/[facility]/ZIP Co de Phone Number [facility] [address] [place] [phone] * HIV-1/2 Antigen and Antibodies, Fourth Generation, with Reflexes (11/22/2024 12:24 PM EDT) [facility] HIV AB/AG Nonreactive Nonreactive [facility] Comment:HIV-1 p24 Ag and/or HIV-1/HIV-2 Ab not detected.A test result that is nonreactive does not exclude thepossibility of exposure to or infection with HIV-1 and/orHIV-2. Nonreactive results in this assay for individualswith prior exposure to HIV-1 and/or HIV-2 may be due toantigen and antibody levels that are below the limit ofdetection of this assay.The [employer] HIV Ag/Ab Combo assay result andsupplemental assay results should be interpreted inconjunction with the patient's clinical presentation,history and other laboratory results. If the results areinconsistent with clinical evidence, additional testing issuggested to confirm the result. Blood Venous blood specimen / Unknown 11/22/2024 12:24 PM EDT 11/22/2024 1:36 PM EDT us Nu Eckert MD LAB BLOOD ORDERAB LES Final Result [facility] [address] [place] [phone] * Hepatitis B Surface Antibody, Qualitative (11/22/2024 12:24 PM EDT) [facility] ~Hepatitis B Surface Antibody REACTIVE Nonreactive [facility] Comment:REACTIVE: > 11.99 mI U/mL Blood Venous blood specimen / Unknown 11/22/2024 12:24 PM EDT 11/22/2024 1:36 PM EDT us Nu Eckert MD LAB BLOOD ORDERAB LES Final Result [facility] [address] [place] [phone] * (ABNORMAL) CBC (11/22/2024 12:24 PM EDT) White Blood Count 7.5 4.8 - 10.8 X10*3/uL [facility] Red Blood Count 4.82 4.60 - 5.80 X10*6/uL [facility] Hemoglobin 11.8(L) 14.0 - 18.0 g/dl [facility] Hematocrit 37.2(L) 42.0 - 52.0 % [facility] Mean Corpuscular Volume 77.2(L) 80.0 - 98.0 fL [facility] Mean Corpuscular Hemoglobin 24.5(L) 27.0 - 33.0 pg [facility] Mean Corpuscular HGB Conc 31.7 31.0 - 36.0 g/dl [facility] Red Cell Distribution Width 12.8 11.0 - 16.0 % [facility] Platelet Count 272 160 - 400 X10*3/uL [facility] Mean Platelet Volume 11.3 9.4 - 12.4 fL [facility] NRBC Pct Auto 0.0 0.0 - 0.2 /100WBC [facility] NRBC Abs Auto 0.000 0.0 - 0.012 X10*3/uL [facility] Blood Venous blood specimen / Unknown 11/22/2024 12:24 PM EDT 11/22/2024 1:36 PM EDT us Nu Eckert MD LAB BLOOD ORDERAB LES Final Result [facility] [address] [place] [phone] * Hemoglobin A1c (11/22/2024 12:24 PM EDT) Hemoglobin A1c 5.0 <6.0 % [facility] Comment:Hemoglobin A1C Refer ence Range Adults: 4.8 - 6.0 % Non diabetic: < 6.0 % Goal: < 7.0 %Additional Action Suggested: > 8.0 %Note: Hemoglobin A1c results are invalid for patients with abnormal amounts of HbF. Blood transfusions may impact the HbA1c concentration in the patient sample. Estimated Average Glucose 97 mg/dL [facility] Comment:eAG = Estimated ave rage glucose which is %A1C expressed asaverage glucose, using the formula of the T9Y-MiqkvmdIcyqshq Glucose study (ADAG), Diabetes Care, Vol.31,#8,Nov. 2007 Blood Venous blood specimen / Unknown 11/22/2024 12:24 PM EDT 11/22/2024 1:36 PM EDT Nu Eckert MD LAB BLOOD ORDERAB LES Final Result Performing Organization Address City/[facility]/ZIP Co de Phone Number [facility] [address] [place] [phone] * (ABNORMAL) Ferritin (11/22/2024 12:24 PM EDT) Ferritin 429(H) 20 - 250 ng/mL [facility] Blood Venous blood specimen / Unknown 11/22/2024 12:24 PM EDT 11/22/2024 1:36 PM EDT us Nu Eckert MD LAB BLOOD ORDERAB LES Final Result Performing Organization Address City/[facility]/ZIP Co de Phone Number [facility] [address] [place] [phone] * (ABNORMAL) Lipid Panel, Standard (11/22/2024 12:24 PM EDT) Triglycerides 52 <150 mg/dL [facility] Comment:Desirable Triglyceri de: less than 150 mg/dLBorderline High Triglyceride 150-199 mg/dLHigh Triglyceride: 200-499 mg/dLVery High Triglyceride: greater than or equal to 5OO mg/dL Cholesterol 106 <200 mg/dL [facility] Comment:Desirable Cholestero l: less than 200 mg/dLBorderline High Cholesterol: 200-239 mg/dLHigh Cholesterol: greater than 239 mg/dL LDL Cholesterol Calculated 58 <100 mg/dL [facility] Comment:Desirable LDL: less than 100 mg/dLNear Optimal/Above Optimal LDL: 110- 129 mg/dLBorderline High LDL: 130-159 mg/dLHigh LDL: 160-189 mg/dLVery High LDL: greater than or equal to 190 mg/dL HDL Cholesterol 38(L) >40 mg/dL [facility] Comment:Desirable HDL: great er than 40 mg/dL Note: This HDL assay may give artificially low results in patients with liver disease. Blood Venous blood specimen / Unknown 11/22/2024 12:24 PM EDT 11/22/2024 1:36 PM EDT us Nu Eckert MD LAB BLOOD ORDERAB LES Final Result [facility] [address] [place] [phone] from Last 3 Months Insurance [facility] C3
--- OUTSIDE RECORDS SUMMARY | 2025-01-15 08:18 | XMS_ITS | Encounter Summary ---
Author Organization [employer] Address [address] [place] [address] 7t [place] [address] Care Team Providers Care Business Intelligence Director Name Role Phone Unavailable Primary Care Provider Unavailabl e Reason for Visit * Reason Onset Date Comments Results 12/04/2024 Lab Orders 12/04/2024 Encounter Details Date Type Department Care Team ([facility] Contact Info) Description 12/04/2024 Results Follow-Up [facility] [address] [place], [place] [phone] Nu Golden MD [address] [place], [place] [phone] Magnesium, Phosphate (As Phosphorus) Social History Tobacco [...] Description 02/07/2025 9:15 AM EDT Office Visit [facility] [address] [place] [phone] Nu Golden MD [address] [place] [address] documented as of this encounter Visit Diagnoses Not on filedocumented in this encounter
--- OUTSIDE RECORDS SUMMARY | 2025-01-15 08:18 | XMS_ITS | Encounter Summary ---
Author Organization [facility] [facility] Address [address] [place] [address] 7[place] [address] Care Team Providers Care It Service Technician Name Role Phone Unavailable Primary Care Provider Unavailabl e Reason for Visit * Reason Comments Med Refill Encounter Details Date Type Department Care Team (Late Contact Info) Description 12/13/2024 Refill [facility] [address] [place] [address] [phone] Nu Golden MD [address] [place] [address] [phone] Social History Tobacco Use Types Packs/Day Years [...] Description 02/07/2025 9:15 AM EDT Office Visit [facility] [address] [place] [address] [phone] Nu Golden MD [address] [place] [address] [phone] documented as of this encounter Visit Diagnoses Not on filedocumented in this encounter
--- OUTSIDE RECORDS SUMMARY | 2025-01-15 08:19 | XMS_ITS | Encounter Summary ---
Author Organization [facility] Address [address] [place] [address] 7[address] [place] [address] Care Team Providers Care Latex Spooler Name Role Phone Unavailable Primary Care Provider Unavailabl e Reason for Visit * Reason Comments Med Refill Encounter Details Date Type Department Care Team (Late Contact Info) Description 01/14/2025 Refill [facility] [address] [place] [address] [phone] Nu Golden MD [address] [place] [address] [phone] Social History Tobacco Use Types Packs/Day Years [...] Description 02/07/2025 9:15 AM EDT Office Visit [facility] [address] [place] [address] [phone] Nu Golden MD [address] [place] [address] [phone] documented as of this encounter Visit Diagnoses Not on filedocumented in this encounter
--- OUTSIDE RECORDS SUMMARY | 2025-01-15 08:19 | XMS_ITS | Encounter Summary ---
Author Organization [facility] Address [address] [facility] 7t [place] [address] Care Team Providers Care Printing Machine Operator Name Role Phone Unavailable Primary Care Provider Unavailabl e Reason for Visit * Reason Onset Date Comments Referral 01/12/2025 Lab Orders 01/12/2025 Encounter Details Date Type Department Care Team ([facility] Contact Info) Description 01/12/2025 Telephone [facility] [address] [place], [place] [phone] Maria De Jesus Rodrigues RN 230 [place], [place] [phone] Referral; Lab Orders Social History Tobacco Use Types Packs/Day Years [...] - Maria De Jesus Rodrigues RN - 01/12/2025 4:13 PM EDT Telephone call placed to pt's father on HIPAA regarding below message. Informed GI referral placed for ongoing diarrhea. If they don't hear from that office within 2 weeks, let mus know. Also reminded to get outstanding labs done. Dad verbalized understanding and denied having any further questionsor concerns at this time. Please inform pt I referred today to GI for ongoing diarrhea Also please reinforce pt to get labs done ordered last month to monitor magnesium Thanks documented in this encounter Plan of Treatment Upcoming Encounters Date Type Department Care Team (Late st Contact Info) Description 02/07/2025 9:15 AM EDT Office Visit [facility] [address] [place] [address] Nu Golden MD [address] [place] [address] documented as of this encounter Visit Diagnoses Not on filedocumented in this encounter
[2025-01-15 11:41] LABS: Magnesium 1.8 mg/dL (1.6-2.6)
== END 2025-01-15 08:11 | disposition home or self-care (01) ==
LOC: HO.HHCL 08:10
PROVIDERS: PCP Student in an Organized Health Care Education/Training Program; Visit Provider Student in an Organized Health Care Education/Training Program
DX: E83.42 Hypomagnesemia (principal)
CPT/HCPCS: 36415; 83735

== ENCOUNTER 2025-02-01 08:42 | Outpatient (REF) | payer MEDICAID, SELFPAY ==
--- NOTE | ~2025-02-01 | US_ITS ---
CLINICAL HISTORY: pt w ongoing elevated LFTS US abdomen complete Comparison: None provided Findings: The visualized pancreas is normal. The aorta and inferior vena cava are normal caliber. The appearance of the liver suggests fatty infiltration. There is no intrahepatic bile duct dilatation. The common duct is 3 mm in diameter. The gallbladder is normal. There is no sonographic Bledsoe sign. The main portal vein is antegrade. The right kidney is 10.0 cm in length. The left kidney is 12.3 cm in length. The spleen is normal. No ascites. IMPRESSION: 1. Hepatic steatosis. This document has been electronically signed by: Lc Le MD on 02/02/2025 09:53:26
--- OUTSIDE RECORDS SUMMARY | 2025-02-01 09:31 | XMS_ITS | Clinical Summary ---
Author Organization [employer] Address [address] [facility] 7 [place] [address] Care Team Providers Care Airline Pilot Name Role Phone Unavailable Primary Care Provider Unavailabl e Allergies No known active allergies Medications ergocalciferol (Vitamin D2) 1.25 MG (66395 UT) capsule Take 1 capsule (1.25 mg) by mouth 1 (one) time per week. 4 capsule 5 11/22/2024 Active Magnesium Glycinate 100 MG capsule Take 2 capsules (200 mg) by mouth every 12 (twelve) hours. 120 capsule 2 11/29/2024 Active Active Problems Problem Noted Date Diagnosed Date Autism 11/22/2024 Anemia 11/22/2024 Hypomagnesemia 11/22/2024 Health care maintenance 11/22/2024 Diarrhea 11/22/2024 SBS (short bowel syndrome) 11/22/2024 S/P small bowel resection 11/22/2024 S/P right colectomy 11/22/2024 Poor oral hygiene 11/22/2024 Transaminitis 11/22/2024 Encounters Date Type Department Care Team Description 01/31/2025 Patient Outreach [facility] [address] [place] [phone] Nu Golden MD Care Coordination (CHW outreach for SDOH housing search-referral completed ) 01/31/2025 Patient Outreach [address] [phone] Nu Golden MD Pre-visit Planning (SDOH Screening positive and Tobacco screening negative) 01/15/2025 Results Follow-Up [address] [address] Nu Golden MD Magnesium 01/14/2025 Refill [facility] [address] [place] [phone] Nu Golden MD 01/12/[address] [address] Maria De Jesus Rodrigues, commercial escrow assistant; Lab Orders 01/11/2025 Orders Only [address] [address] Nu Golden MD H/O colectomy (Primary Dx); Hypomagnesemia; Diarrhea, unspecified type 12/13/2024 Refill [facility] [address] [address] Nu Golden MD 12/11/2024 Refill [facility] [address] [address] Nu Golden MD 12/04/2024 Orders Only [address] [address] Nu Golden MD Hypomagnesemia (Primary Dx) 12/04/2024 Results Follow-Up [address] [address] Nu Golden MD Magnesium, Phosphate (As Phosphorus) 11/29/2024 Orders Only [address] [address] Nu Golden MD Transaminitis (Primary Dx); Hypomagnesemia 11/22/2024 11:00 AM EDT Office Visit [facility] [address] [address] Nu Golden MD Health care maintenance (Primary Dx); H/O colectomy; Hypomagnesemia; Autism; Iron deficiency anemia due to chronic blood loss; 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; S/P small bowel resection; S/P right colectomy; Poor oral hygiene; Transaminitis 11/22/2024 Results Follow-Up [facility] WALK-IN [address] [address] Nu Golden MD CBC, Comprehensive Metabolic Panel, Hemoglobin A1c, Additional followed-up results: 15 11/22/2024 Telephone [facility] [address] [facility] [place] [address] Betty Min RN CRITICAL LAB 11/22/2024 Travel 11/21/2024 Telephone [facility] [address] [place] [address] Ben Gonsalez MD 11/20/2024 Telephone [facility] INS ENROLLMENT [address] [place] [address] Maribell Talley MD 11/01/2024 Telephone [facility] [address] [place] [address] Ben Gonsalez MD CHW - New Patient Assistance from Last 3 Months Social History Tobacco Use Types Packs/Day Years Used Date Smoking Tobacco: Never Passive Smoke Exposure: Never Smokeless Tobacco: Never Tobacco Cessation:Counseling Given: Not Answered Housing Stability Answer Date Recorded What is your housing situation today? I do not have housing (Staying with others, in a hotel, in a custodial, living outside on the street, on a beach, in a car, or in a park 01/31/[address] you li ve. Do you have problems with any of the following? None of the above 01/31/2025 Food Insecurity Answer Date Recorded Within the past 12 months, y ou worried that your food would run out before you got money to buy more: Sometimes True 2024 Within the past 12 months,th e food you bought just didn't last and you didn't have enough money to get more: Sometimes True 01/31/2025 Transportation Answer Date Recorded In the past 12 months, has l ack of transportation kept you from medical appts, meetings, work or from getting things needed for daily living? No 01/31/2025 Utilities Answer Date Recorded In the past 12 months, has t he electric, gas, oil or water company threatened to shut off services in your home? Yes 01/31/2025 Internet Access Answer Date Recorded Internet Access Q1 Yes 01/31/2025 Internet Access Q2 Not on file 01/31/2025 Sex and Gender Information Value Date Recorded [...] Description 02/07/2025 9:15 AM EDT Office Visit [facility] [address] [place] [address] [phone] Nu Golden MD [address] [place] [address] Health Maintenance Due Date Last Done Comments Depression Screening 1993 Disability Screening 1993 DTaP/Tdap/Td Vaccines (5 - Tdap) 2004 01/09/1999, 02/08/1997, 12/19/1996, Additional history exists Alcohol/Substance Use Screening 2005 Family Planning (PISQ) 2008 HPV Vaccines (1 - Male 3-dose series) 2008 COVID-19 Vaccine ( - season) 2024 Influenza Vaccine (#1) 2024 Tobacco Screening 11/22/2025 11/22/2024 SDOH Screening 01/31/2026 01/31/2025 Zoster Vaccines (1 of 2) 12/25/2043 RSV [...] Procedure Name Priority Date/Time Associated Diagnosis Comments MAGNESIUM Routine 01/15/2025 8:39 AM EDT Hypomagnesemia PHOSPHATE ( PHOSPHORUS) Routine 12/04/2024 9:33 AM [...] maintenance from Last 3 Months Results * Magnesium (01/15/2025 8:39 AM EDT) Only the most recent of4 resultswithin the time period is included. Magnesium 1.8 1.6 - 2.6 mg/dL [facility] Blood Venous blood specimen / Unknown 01/15/2025 8:39 AM EDT 01/15/2025 11:13 AM EDT us Nu Eckert MD LAB BLOOD ORDERAB LES Final Result Performing Organization Address [facility]/ZIP Co de Phone Number [facility] [address] [place] [phone] * Phosphate (As Phosphorus) (12/04/2024 9:33 AM EDT) Phosphorus 3.7 2.7 - 4.5 mg/dL [facility] Blood Venous blood specimen / Unknown 12/04/2024 9:33 AM EDT 12/04/2024 11:10 AM EDT Nu Eckert MD LAB BLOOD ORDERAB LES Final Result Performing Organization Address [facility] Co de Phone Number [facility] [address] [place] [phone] * (ABNORMAL) Comprehensive Metabolic Panel (11/29/2024 9:58 AM EDT) Only the most recent of2 resultswithin the time period is included. Sodium 144 135 - 145 mmol/L [facility] Potassium 3.8 3.3 - 5.1 mmol/L [facility] Chloride 108 96 - 108 mmol/L [facility] Carbon Dioxide 28 22 - 29 mmol/L [facility] Anion Gap 12 12 - 20 [facility] Urea Nitrogen (BUN) 13 9 - 16 mg/dL [facility] Creatinine, Serum 0.69 0.5 - 1.4 mg/dL [facility] Estimated Glomerular Filt Rate >60 [facility] Comment:Chronic Kidney Disea se: Estimated GFR < 60 mL/min/[id number] Kidney Disease: Estimated GFR < 15 mL/min/1.73m2 Glucose 110 60 - 115 mg/dL [facility] Calcium 9.1 8.4 - 10.2 mg/dL [facility] Bilirubin, Total 0.8 0.0 - 1.0 mg/dL [facility] Aspartate Amino Transferase 70(H) 5 - 37 U/L [facility] Alanine Aminotransferase 186(H) 0 - 40 U/L [facility] Total Protein 6.5 6.5 - 8.0 g/dL [facility] Albumin Level 4.2 3.5 - 5.0 g/dL [facility] Alkaline Phosphatase 100 39 - 117 U/L [facility] Blood Venous blood specimen / Unknown 11/29/2024 9:58 AM EDT 11/29/2024 11:15 AM EDT us Nu Eckert MD LAB BLOOD ORDERAB LES Final Result Performing Organization Address City/[facility]/ZIP Co de Phone Number [facility] [address] [place] [phone] * Syphilis Screen (11/22/2024 12:24 PM EDT) Syphilis Screen Nonreactive Nonreactive [facility] Blood 11/22/2024 12:2 4 PM EDT 11/22/2024 1:36 PM EDT Nu Eckert MD LAB BLOOD ORDERAB LES Final Result Performing Organization Address City/[facility]/ZIP Co de Phone Number [facility] [address] [place] [phone] * (ABNORMAL) Vitamin D, 25-Hydroxy, Total, Immunoassay (11/22/2024 12:24 PM EDT) Vitamin D 25-OH Total 12.2(L) >30 ng/mL [facility] Comment: Health Based Reference Values*< 20 ng/mL [id number] ng/mL Insufficient> 30 ng/mL Sufficient*Lewis KUMAR. N [...] MD LAB BLOOD ORDERAB LES Final Result [facility] [address] [place] [phone] * Vitamin B12 (Cobalamin) and Folate Panel, Serum (11/22/2024 12:24 PM EDT) Vitamin B12 521 200 - 900 pg/mL [facility] Comment:NORMAL 200-900 PG/ML INDETERMINATE 160-199 PG/ML DEFICIENT < 160 PG/ML Folate 11.6 > or = 4.0 ng/mL [facility] Comment:Reference Values:> o r = 4.0 ng/mL< 4.0 ng/mL suggests folate deficiency Methotrexate, aminopterin and folinic acid(leucovorin) are chemotherapeutic agents whose molecularstructures are similar to folate; therefore, the Architectfolate assay cannot be used for patients using these drugs. Blood 11/22/2024 12:2 4 PM EDT 11/22/2024 1:36 PM EDT Nu Eckert MD LAB BLOOD ORDERAB LES Final Result Performing Organization Address [facility] Co de Phone Number [facility] [address] [place] [phone] * TSH with Reflex to Free T4 (11/22/2024 12:24 PM EDT) Pathologist [facility] TSH reflex Free T4 0.71 0.32 - 4.0 uIU/mL [facility] Blood 11/22/2024 12:2 4 PM EDT 11/22/2024 1:36 PM EDT us Nu Eckert MD LAB BLOOD ORDERAB LES Final Result Performing Organization Address [facility] Co de Phone Number [facility] [address] [place] [phone] * Hepatitis C Antibody with Reflex to HCV, RNA, Quantitative, Real-Time PCR (11/22/2024 12:24 PM EDT) [facility] Hepatitis C Antibody Nonreactive Nonreactive [facility] Comment:Antibodies to HCV no t detected; does not exclude early acuteHCV infection. Blood Venous blood specimen / Unknown 11/22/2024 12:24 PM EDT 11/22/2024 1:36 PM EDT us Nu Eckert MD LAB BLOOD ORDERAB LES Final Result Performing Organization Address [facility] Co de Phone Number [facility] [address] [place] [phone] * Iron And Total Iron Binding Capacity (11/22/2024 12:24 PM EDT) Iron 93 45 - 160 mcg/dL [facility] Total Iron Binding Capacity 291 228 - 428 mcg/dL [facility] Percent Iron Saturation 32 15 - 50 % [facility] Unsaturated Iron Binding 198 ug/dL [facility] Blood Venous blood specimen / Unknown 11/22/2024 12:24 PM EDT 11/22/2024 1:36 PM EDT us Nu Eckert MD LAB BLOOD ORDERAB LES Final Result Performing Organization Address [facility] Co de Phone Number [facility] [address] [place] [phone] * Hepatitis B surface antigen, EIA (11/22/2024 12:24 PM EDT) Hepatitis B Surface Ag Negative Negative [facility] Blood Venous blood specimen / Unknown 11/22/2024 12:24 PM EDT 11/22/2024 1:36 PM EDT us Nu Eckert MD LAB BLOOD ORDERAB LES Final Result Performing Organization Address [facility] Co de Phone Number [facility] [address] [place] [phone] * Hepatitis B Core Antibody, Total (11/22/2024 12:24 PM EDT) Hepatitis B Core Antibody Nonreactive Nonreactive [facility] Blood Venous blood specimen / Unknown 11/22/2024 12:24 PM EDT 11/22/2024 1:36 PM EDT Nu Eckert MD LAB BLOOD ORDERAB LES Final Result Performing Organization Address [facility] Co de Phone Number [facility] [address] [place] [phone] * HIV-1/2 Antigen and Antibodies, Fourth Generation, with Reflexes (11/22/2024 12:24 PM EDT) HIV AB/AG Nonreactive Nonreactive [facility] Comment:HIV-1 p24 Ag and/or HIV-1/HIV-2 Ab not detected.A test result that is nonreactive does not exclude thepossibility of exposure to or infection with HIV-1 and/orHIV-2. Nonreactive results in this assay for individualswith prior exposure to HIV-1 and/or HIV-2 may be due toantigen and antibody levels that are below the limit ofdetection of this assay.The [employer] HIV Ag/Ab Combo assay result andsupplemental assay results should be interpreted inconjunction with the patient's clinical presentation,history and other laboratory results. If the results areinconsistent with clinical evidence, additional testing issuggested to confirm the result. Blood Venous blood specimen / Unknown 11/22/2024 12:24 PM EDT 11/22/2024 1:36 PM EDT Nu Eckert MD LAB BLOOD ORDERAB LES Final Result Performing Organization Address [facility]/ZIP Co de Phone Number [facility] [address] [place] [phone] * Hepatitis B Surface Antibody, Qualitative (11/22/2024 12:24 PM EDT) Pathologist [facility] ~Hepatitis B Surface Antibody REACTIVE Nonreactive [facility] Comment:REACTIVE: > 11.99 mI U/mL Blood Venous blood specimen / Unknown 11/22/2024 12:24 PM EDT 11/22/2024 1:36 PM EDT us Nu Eckert MD LAB BLOOD ORDERAB LES Final Result Performing Organization Address [facility]/ZIP Co de Phone Number [facility] [address] [place] [phone] * (ABNORMAL) CBC (11/22/2024 12:24 PM EDT) Pathologist [facility] White Blood Count 7.5 4.8 - 10.8 X10*3/uL [facility] Red Blood Count 4.82 4.60 - 5.80 X10*6/uL [facility] Hemoglobin 11.8(L) 14.0 - 18.0 g/dl [facility] Hematocrit 37.2(L) 42.0 - 52.0 % [facility] Mean Corpuscular Volume 77.2(L) 80.0 - 98.0 fL [facility] Mean Corpuscular Hemoglobin 24.5(L) 27.0 - 33.0 pg [facility] Mean Corpuscular HGB Conc 31.7 31.0 - 36.0 g/dl [facility] Red Cell Distribution Width 12.8 11.0 - 16.0 % [facility] Platelet Count 272 160 - 400 X10*3/uL [facility] Mean Platelet Volume 11.3 9.4 - 12.4 fL [facility] NRBC Pct Auto 0.0 0.0 - 0.2 /100WBC [facility] NRBC Abs Auto 0.000 0.0 - 0.012 X10*3/uL [facility] Blood Venous blood specimen / Unknown 11/22/2024 12:24 PM EDT 11/22/2024 1:36 PM EDT us Nu Eckert MD LAB BLOOD ORDERAB LES Final Result [facility] [address] [place] [address] [phone] * Hemoglobin A1c (11/22/2024 12:24 PM EDT) Hemoglobin A1c 5.0 <6.0 % [facility] Comment:Hemoglobin A1C Refer ence Range Adults: 4.8 - 6.0 % Non diabetic: < 6.0 % Goal: < 7.0 %Additional Action Suggested: > 8.0 %Note: Hemoglobin A1c results are invalid for patients with abnormal amounts of HbF. Blood transfusions may impact the HbA1c concentration in the patient sample. Estimated Average Glucose 97 mg/dL [facility] Comment:eAG = Estimated ave rage glucose which is %A1C expressed asaverage glucose, using the formula of the [id number] Glucose study (ADAG), Diabetes Care, Vol.31,#8,Nov. 2007 Blood Venous blood specimen / Unknown 11/22/2024 12:24 PM EDT 11/22/2024 1:36 PM EDT us Nu Eckert MD LAB BLOOD ORDERAB LES Final Result Performing Organization Address [facility]/ZIP Co de Phone Number [facility] [address] [place] [phone] * (ABNORMAL) Ferritin (11/22/2024 12:24 PM EDT) Ferritin 429(H) 20 - 250 ng/mL [facility] Blood Venous blood specimen / Unknown 11/22/2024 12:24 PM EDT 11/22/2024 1:36 PM EDT us Nu Eckert MD LAB BLOOD ORDERAB LES Final Result Performing Organization Address [facility] Co de Phone Number [facility] [address] [place] [address] [phone] * (ABNORMAL) Lipid Panel, Standard (11/22/2024 12:24 PM EDT) Triglycerides 52 <150 mg/dL [facility] Comment:Desirable Triglyceri de: less than 150 mg/dLBorderline High Triglyceride 150-199 mg/dLHigh Triglyceride: 200-499 mg/dLVery High Triglyceride: greater than or equal to 5OO mg/dL Cholesterol 106 <200 mg/dL [facility] Comment:Desirable Cholestero l: less than 200 mg/dLBorderline High Cholesterol: 200-239 mg/dLHigh Cholesterol: greater than 239 mg/dL LDL Cholesterol Calculated 58 <100 mg/dL [facility] Comment:Desirable LDL: less than 100 mg/dLNear Optimal/Above Optimal LDL: 110- 129 mg/dLBorderline High LDL: 130-159 mg/dLHigh LDL: 160-189 mg/dLVery High LDL: greater than or equal to 190 mg/dL HDL Cholesterol 38(L) >40 mg/dL [facility] Comment:Desirable HDL: great er than 40 mg/dL Note: This HDL assay may give artificially low results in patients with liver disease. Blood Venous blood specimen / Unknown 11/22/2024 12:24 PM EDT 11/22/2024 1:36 PM EDT us Nu Eckert MD LAB BLOOD ORDERAB LES Final Result [facility] [address], [place] [phone] from Last 3 Months Insurance [facility] C[facility]
--- OUTSIDE RECORDS SUMMARY | 2025-02-01 09:31 | XMS_ITS | Encounter Summary ---
Author Organization [employer] Address [address] [facility] 7 [place] [address] Care Team Providers Care Net Developer Architect Name Role Phone Unavailable Primary Care Provider Unavailabl e Reason for Visit * Reason Comments Care Coordination CHW outreach for SDO H housing search-referral completed Encounter Details Date Type Department Care Team (Latest Contact Info) Description 01/31/2025 Patient Outreach [facility] [address] [place] [address] Nu Golden MD [address] [place] [address] Care Coordination (CHW outreach for SDOH housing search-referral completed ) Social History Tobacco Use Types Packs/Day Years Used Date Smoking Tobacco: Never Passive Smoke Exposure: Never Smokeless Tobacco: Never Housing Stability Answer Date Recorded What is your housing situation today? I do not have housing (Staying with others, in a hotel, in a mcfp, living outside on the street, on a [...] AM EDT documented as of this encounter Progress Notes * Estrada Vincent - 01/31/2025 12:54 PM EDT CHW Estrada Vincent, placed outbound call to patient for assistance with SDOH as a referral was received by the provider. Patient's name and were confirmed. Patient screened positive for the following SDOH housing insecurities. Patient states is staying with her friend but is searching for her own apartment. CHW referral patient to the list of application mail out to her address on file. Patient verbalizes understanding, and able to agree with plan to follow up herself. Patient educated on extended clinic hours on Mondays through Wednesdays, and Walk-In Urgent Care Located in [facility]. Patient provided with after-hours line for [facility], , which offer night time triage service and option to transfer to rocket engine component mechanic provider if needed. documented in this encounter Plan of Treatment Upcoming Encounters Date Type Department Care Team (Late st Contact Info) Description 02/07/2025 9:15 AM EDT Office Visit [facility] MED[facility] [address] [place] [address] Nu Golden MD [address] [place] [address] documented as of this encounter Visit Diagnoses Not on filedocumented in this encounter
--- OUTSIDE RECORDS SUMMARY | 2025-02-01 09:31 | XMS_ITS | Encounter Summary ---
Author Organization [employer] Address [address] [place] [address] [place] [address] Care Team Providers Care Steam Turbine Assembler Name Role Phone Unavailable Primary Care Provider Unavailabl e Reason for Visit * Reason Comments Med Refill Encounter Details Date Type Department Care Team (Late Contact Info) Description 12/13/2024 Refill [facility] [address] [place] [address] [phone] Nu Golden MD [address] [place] [address] [phone] Social History Tobacco Use Types Packs/Day Years [...] Description 02/07/2025 9:15 AM EDT Office Visit [facility] [address] [place] [address] [phone] Nu Golden MD [address] [place] [address] [phone] documented as of this encounter Visit Diagnoses Not on filedocumented in this encounter
--- OUTSIDE RECORDS SUMMARY | 2025-02-01 09:31 | XMS_ITS | Encounter Summary ---
Author Organization [employer] Address [address] [place] [address] [address] [address] Care Team Providers Care Certified Flight Instructor Name Role Phone Unavailable Primary Care Provider Unavailabl e Reason for Visit * Reason Comments Med Refill Encounter Details Date Type Department Care Team ([facility] Contact Info) Description 01/14/[address] [facility] [address] [place] [address] [phone] Nu Golden MD [address] [place] [address] [phone] Social History Tobacco Use Types Packs/Day Years [...] Office Visit [facility] [address] [place] [address] [phone] Nu Golden MD [address] [place] [address] [phone] documented as of this encounter Visit Diagnoses Not on filedocumented in this encounter
--- OUTSIDE RECORDS SUMMARY | 2025-02-01 09:31 | XMS_ITS | Encounter Summary ---
Author Organization [employer] Address [address] [facility] 7 [place] [address] Care Team Providers Care Developer Trading Systems Name Role Phone Unavailable Primary Care Provider Unavailabl e Reason for Visit * Reason Comments Pre-visit Planning SDOH Screening posit sean and Tobacco screening negative Encounter Details Date Type Department Care Team ([facility] Contact Info) Description 01/31/2025 Patient Outreach [facility] [address] [place] [address] Nu Golden MD [address] [place] [address] Pre-visit Planning (SDOH Screening positive and Tobacco screening negative) Social History Tobacco Use Types Packs/Day Years Used Date Smoking Tobacco: Never Passive Smoke Exposure: Never Smokeless Tobacco: Never Housing Stability Answer Date Recorded What is your housing situation today? I do not have housing (Staying with others, in a hotel, in a fdc, living outside on the street, on a [...] as of this encounter Progress Notes * Latia Jarrett - 01/31/2025 10:37 AM EDT BRAYDEN Torres placed successful outbound call to patient for pre-visit planning. Patient name and confirmed by father. Patient's father confirms appt date and time, and has transportation arrangements. Father's biggest concern for appointment at this time is patient still having diarrhea and themedication that patient is taking for it is not helping. Patient's father would like patient to be referred to a Roof Painter. Patient educated on extended clinic hours. Appropriate screenings completed in anticipation of appointment. SDOH positive. Patient looking for assistance with Housing(Homeless) and Food insecurities, Referral will be placed. documented in this encounter Plan of Treatment Upcoming Encounters Date Type Department Care Team (Late st Contact Info) Description 02/07/2025 9:15 AM EDT Office Visit [facility] [address] [place] [address] Nu Golden MD [address] [place] [address] documented as of this encounter Visit Diagnoses Not on filedocumented in this encounter
--- OUTSIDE RECORDS SUMMARY | 2025-02-01 09:31 | XMS_ITS | Encounter Summary ---
Author Organization [employer] Address [address] [place] [address] 7[place] [address] Care Team Providers Care Flight Data Technician Name Role Phone Unavailable Primary Care Provider Unavailabl e Reason for Visit * Reason Onset Date Comments Results 12/04/2024 Lab Orders 12/04/2024 Encounter Details Date Type Department Care Team ([facility] Contact Info) Description 12/04/2024 Results Follow-Up [facility] MED[facility]INE [address] [place] [address] Nu Golden MD [address] [place], [place] [phone] Magnesium, Phosphate (As Phosphorus) Social History Tobacco [...] Upcoming Encounters Date Type Department Care Team ([facility] st Contact Info) Description 02/07/2025 9:15 AM EDT Office Visit [facility] MEDICINE [address] [place] [phone] Nu Golden MD [address] [place] [phone] documented as of this encounter Visit Diagnoses Not on filedocumented in this encounter
--- OUTSIDE RECORDS SUMMARY | 2025-02-01 09:31 | XMS_ITS | Encounter Summary ---
Author Organization [employer] Address [address] [place] [address] 7[place] [address] Care Team Providers Care Engineering Documentation Specialist Name Role Phone Unavailable Primary Care Provider Unavailabl e Reason for Visit * Reason Comments Med Refill Encounter Details Date Type Department Care Team (Late Contact Info) Description 12/11/2024 Refill [facility] [address] [place] [address] [phone] Nu Golden MD [address] [place] [address] [phone] Social History Tobacco Use Types Packs/Day Years [...] Description 02/07/2025 9:15 AM EDT Office Visit [facility] [address] [place] [address] [phone] Nu Golden MD [address] [place] [address] [phone] documented as of this encounter Visit Diagnoses Not on filedocumented in this encounter
== END 2025-02-01 08:43 | disposition home or self-care (01) ==
LOC: HO.US 08:42
PROVIDERS: PCP Student in an Organized Health Care Education/Training Program; Visit Provider Student in an Organized Health Care Education/Training Program
DX: R74.01 Elevation of levels of liver transaminase levels (principal)
CPT/HCPCS: 76700

== ENCOUNTER → 2025-02-01 08:44 | Outpatient (BNV) | payer MEDICAID, SELFPAY | PROVIDERS: PCP Student in an Organized Health Care Education/Training Program; Visit Provider Specialist | DX: K76.0 Fatty (change of) liver, not elsewhere classified (principal) | CPT/HCPCS: 76700 ==